=== PATIENT | female | born 1940 | race Caucasian/White ===

== ENCOUNTER 2016-12-10 04:57 | Inpatient (IN) | payer OTHER ==
[2016-11-16 13:09] VITALS: BMI 24.0
--- NOTE | 2016-11-16 14:21 | PAT Medication Instructions ---
Service Date Nov 16, 2016. Current Home Medication List Acetaminophen (Tylenol Arthritis Ext Rel), 2 TAB PO QAM Amlodipine (Norvasc), 5 MG PO BID Bioflavonoid Products (Holli-C), 1 TAB PO QAM Biotin (Biotin), 1 TAB PO QAM Calcium Carbonate-Cholecalcife (Caltrate 600+D), 1 TAB PO BID Cetirizine (Zyrtec), 10 MG PO QAM Cholecalciferol (Vitamin D3), 1 TAB PO QAM Clorazepate Dipotassium (Tranxene-T ), 3.75 MG PO TID Cyanocobalamin (Vitamin B-12), 500 MCG PO QAM Docusate Sodium (Colace), 1 CAP PO BID Esomeprazole Magnesium (Nexium), 40 MG PO BID Exemestane (Aromasin), 1 TAB PO QDL Flaxseed (Linseed) (Flaxseed Oil), 1 CAP PO QAM Folic Acid (Folic Acid), 1 TAB PO QAM Hydroxychloroquine Sulfate (Plaquenil), 200 MG PO BID Latanoprost (Xalatan 0.005% Oph Lashell), 1 DROPS OP HS Misc Natural Products (Osteo Bi-Flex Joint Shiel), 1 TAB PO BID Multiple Vitamin (Multi Vitamin), 1 TAB PO QAM Nebivolol Hcl (Bystolic), 5 MG PO BID Niacin (Niacin), 500 MG PO QAM Olopatadine Hcl (Patanol 0.1% Oph), 1 DROP OPB BID Psyllium (Metamucil), 5 CAP PO QPM Timolol Maleate (Ophth) (Timoptic-Xe 0.5% Oph), 1 DROPS OP QAM Medication Instructions For Your Scheduled Surgery Hydroxychloroquine Sulfate (Plaquenil), 200 MG PO BID (check with coil tier for instructions) - Hold the following medications 10 days prior to surgery: Misc Natural Products (Osteo Bi-Flex Joint Shiel), 1 TAB PO BID Flaxseed (Linseed) (Flaxseed Oil), 1 CAP PO QAM Biotin (Biotin), 1 TAB PO QAM - Hold the following medications evening prior to and morning of the surgery: Niacin (Niacin), 500 MG PO QAM - Hold the following medications the morning of surgery: Multiple Vitamin (Multi Vitamin), 1 TAB PO QAM Folic Acid (Folic Acid), 1 TAB PO QAM Docusate Sodium (Colace), 1 CAP PO BID Cyanocobalamin (Vitamin B-12), 500 MCG PO QAM Calcium Carbonate-Cholecalcife (Caltrate 600+D), 1 TAB PO BID Cetirizine (Zyrtec), 10 MG PO QAM Cholecalciferol (Vitamin D3), 1 TAB PO QAM Bioflavonoid Products (Holli-C), 1 TAB PO QAM Exemestane (Aromasin), 1 TAB PO QDL (can take after surgery) - Take the following medications the morning of surgery with a sip of water: Timolol Maleate (Ophth) (Timoptic-Xe 0.5% Oph), 1 DROPS OP QAM Olopatadine Hcl (Patanol 0.1% Oph), 1 DROP OPB BID Nebivolol Hcl (Bystolic), 5 MG PO BID Esomeprazole Magnesium (Nexium), 40 MG PO BID Acetaminophen (Tylenol Arthritis Ext Rel), 2 TAB PO QAM Amlodipine (Norvasc), 5 MG PO BID Clorazepate Dipotassium (Tranxene-T ), 3.75 MG PO TID - Take the following medications as scheduled the night before surgery: Psyllium (Metamucil), 5 CAP PO QPM Olopatadine Hcl (Patanol 0.1% Oph), 1 DROP OPB BID Nebivolol Hcl (Bystolic), 5 MG PO BID Latanoprost (Xalatan 0.005% Oph Lashell), 1 DROPS OP HS Esomeprazole Magnesium (Nexium), 40 MG PO BID Docusate Sodium (Colace), 1 CAP PO BID Calcium Carbonate-Cholecalcife (Caltrate 600+D), 1 TAB PO BID Amlodipine (Norvasc), 5 MG PO BID Clorazepate Dipotassium (Tranxene-T ), 3.75 MG PO TID If you have any questions please call us at [phone] or [phone] ( Elisa) or [phone]
--- NOTE | 2016-11-16 15:03 | DIAGNOSTIC IMAGING REPORT ---
CERVICAL SPINE 3 VIEWS HISTORY: Subluxation lateral neutral, flex, extension COMPARISON: None. FINDINGS: The cervical spine is visualized from C1 through the superior endplate of T1. There is no fracture. No evidence for positional subluxation. Moderate degenerative disc changes throughout. Prevertebral soft tissues and the atlantodens interval are intact. Bony mineralization is somewhat diminished. IMPRESSION: No fracture or subluxation within the cervical spine. Moderate degenerative disc change. Mild osteopenia. Electronically signed by: Aman Etienne M.D. 11/16/2016 3:01 PM Dictated Date/Time: 11/16/2016 3:00 PM
--- NOTE | 2016-11-16 15:04 | DIAGNOSTIC IMAGING REPORT ---
CHEST PREADMISSION(PA/LAT) CLINICAL HISTORY: Preoperative chest COMPARISON STUDY: No previous studies for comparison. FINDINGS: There is a moderately severe thoracolumbar scoliosis. The heart is normal in size. There is no failure. There is no focal pulmonary consolidation. There are no pleural effusions. There is a retrocardiac opacity, likely representing a hiatal hernia. There is a low suspicion 1 cm left midlung zone opacity. No corresponding abnormalities visualized in the lateral view. This could represent a summation. IMPRESSION: 1. Nonspecific 1 cm left midlung zone opacity. Short-term imaging follow-up is suggested. 2. Severe scoliosis 3. Hiatal hernia Electronically signed by: Mikie Tafoya M.D. 11/16/2016 3:02 PM Dictated Date/Time: 11/16/2016 2:59 PM
[2016-11-16 15:33] LABS: BASO % 0.3 %; BASO ABS # 0.03 K/uL (0-0.2); COMPLETE YES; EOS % 0.7 %; HEMATOCRIT 41.5 % (37-47); IG% 0.1 %; LYMPH % 32.2 %; LYMPH ABS # 2.82 K/uL (1.2-3.4); MEAN CELL VOLUME 98.6 fL (80-100); MEAN CORPUSCULAR HEMOGLOBIN 32.8 pg (25-34); MEAN CORPUSCULAR HGB CONC 33.3 g/dl (32-36); MEAN PLATELET VOLUME 10.2 fL (7.4-10.4); MONO % 7.1 %; NEUT % 59.6 %; PLATELET COUNT 213 K/uL (130-400); RED BLOOD COUNT 4.21 M/uL (4.2-5.4); WHITE BLOOD COUNT 8.77 K/uL (4.8-10.8)
[2016-11-16 15:40] LABS: URINE APPEARANCE CLEAR (CLEAR); URINE BILIRUBIN NEG (NEG); URINE COLOR YELLOW; URINE NITRITE NEG (NEG); URINE PH 6.5 (4.5-7.5); URINE SPECIFIC GRAVITY 1.025 (1.000-1.030); UROBILINOGEN NEG (NEG); ZZUR CULT IF INDIC CLEAN CATCH NO
[2016-11-16 15:45] LABS: MANUAL MICROSCOPIC REQUIRED? NO; REVIEW REQ? NO
[2016-11-16 15:50] LABS: PROTHROMBIN TIME (PATIENT) 10.6 SECONDS (9.0-12.0)
[2016-11-16 16:19] LABS: ESTIMATED AVERAGE GLUCOSE 120 mg/dl; HA1C FLAG Normal (Normal)
[2016-11-16 16:49] LABS: BUN/CREATININE RATIO 30.2 (10-20); CALCIUM 9.3 mg/dl (8.5-10.1); CREATININE 0.85 mg/dl (0.60-1.20); POTASSIUM 4.2 mmol/L (3.5-5.1)
--- NOTE | 2016-12-05 21:42 | HISTORY & PHYSICAL EXAMINATION ---
DATE OF ADMISSION: 12/10/2016 SUBJECTIVE: CHIEF COMPLAINT: Left knee pain. HISTORY OF PRESENT ILLNESS: The patient is a 76-year-old female, who is here for left knee pain. She states that the symptoms have been chronic and nontraumatic. She describes the pain as aching, sharp and throbbing. She has been treated with cortisone injections, viscosupplementation, anti-inflammatories and physical therapy with no relief. She would like to proceed with a left total knee arthroplasty. PAST MEDICAL HISTORY: Significant for hypertension, osteoarthritis, GERD, hiatal hernia and a history of breast cancer. PAST SURGICAL HISTORY: Hysterectomy, left breast lumpectomy, T and A and appendectomy. SOCIAL HISTORY: She denies alcohol use. She denies smoking or tobacco use. She denies IV drug use. She lives in a 2-nan house and she is currently retired. FAMILY HISTORY: Father had heart disease. ALLERGIES: TO DEMEROL, RECLAST, LATEX, PYRIDIUM, ZITHROMAX, ADHESIVES, ASPIRIN, DARVOCET, EPINEPHRINE DOXYCYCLINE, HYDROCHLOROTHIAZIDE, IODINE, PENICILLIN, STATINS AND SULFA. MEDICATIONS Osteo Bi-Flex, Nasonex, flaxseed oil, Plaquenil 200mg, biotin, fish oil, Aromasin 25 mg, Norvasc 5 mg, Nexium 40 mg, folic acid, vitamin B12, Zyrtec 10 mg, niacin 500 mg and cranberry multivitamin. REVIEW OF SYSTEMS: She denies headaches, fevers, chills, double vision, blurry vision, sore throat, cough, chest pain, nausea, vomiting, diarrhea, constipation, numbness, tingling, tiredness, urinary problems, thoughts to harm herself or harm others or depression. She is positive for joint pain and stiffness in the left knee. OBJECTIVE: GENERAL APPEARANCE: The patient is a 76-year-old female, sitting in no acute distress. She is awake, alert and oriented x3. VITAL SIGNS: She is 4 feet 11 and 3/4 inch she weighs 125 pounds and blood pressure of 140/70. HEENT: Normocephalic and atraumatic. Extraocular movements are intact. PERRLA. Mucosa was moist. No septal deviation. NECK: Supple, no lymphadenopathy, no JVD, no thyromegaly. HEART: Regular rate and rhythm. No murmurs or gallops. LUNGS: Clear to auscultation. No wheezing or rhonchi. ABDOMEN: Soft, nontender and nondistended. Normal bowel sounds, no hepatosplenomegaly. EXTREMITIES: Paying particular attention to the left lower extremity; she is actively able to extend her knee to 0 degrees and flex her knee to 120 degrees. Her ligaments are stable Negative Judith, negative anterior drawer and posterior drawer. Negative valgus and varus stress tests. IMAGING: X-ray shows [id number] in the lateral compartment with osteophyte formation off the femoral condyle and lateral tibial plateau and subchondral sclerotic changes as well as moderate patellofemoral osteoarthritis. IMPRESSION: Severe end-stage osteoarthritis of the left knee. PLAN: The patient is scheduled for a left total knee arthroplasty. She has failed conservative therapies including cortisone injections, viscosupplementation, anti-inflammatories and physical therapy. She would like to proceed with a left total knee arthroplasty. Risks and benefits to surgery were discussed that included but not limited to infection, DVT, pain, stiffness, need for revision surgeries, damage to blood vessels, blood loss, damage to nerves, PE and ; these were all discussed with the patient and the patient wishes to proceed. All questions were answered to her satisfaction. DVT prophylaxis was discussed which we can use aspirin 81 mg b.i.d. She would like to go to [facility] Postop appointment will be on 12/29/2016 at 2:15 p.m. PRABHJOT
[2016-12-10] VITALS (9 sets, daily range): BP systolic 99–159; BP diastolic 62–79; PULSE 0–73; TEMP 36.2–36.5; O2SAT 92–97; Ht 152.4 cm; Wt 57.5 kg
[~2016-12-10] VITALS: Ht 152.4 cm; Wt 57.5 kg
[~2016-12-10 04:57] MED LIST: ACET1TAB84 PO; AMLO-110 PO; BIOF500T PO; BIOT300T2 PO; CALC-354 PO; CETI10TA84 PO; CHOL1000 PO; CLOR3.7515 PO; CYAN500T PO; DOCU-94 PO; EXM25C PO; FLAX12003 PO; FLV1 PO; HYDR200T5 PO; LATA0.009 OP; MISCTAB30 PO; MULT-1027 PO; NEBI10TA2 PO; NIAC500T11 PO; NXM/40 PO; OLOP0.1S3 OPB; PSYL0.524 PO; TIMO0.5S2 OP
[2016-12-10] MEDS ORDERED: ROPIVACAINE 5MG/ML 30 ML 150 MG, BUPIVACAINE 0.5% MPF INJ 30 ML, KETOROLAC TROMETHAMINE... INFIL SCH ×7 (06:00)
[2016-12-10] MEDS ORDERED: ACETAMINOPHEN 500 MG TAB PO SCH (06:00)
[2016-12-10] MEDS ORDERED: LACTATED RINGER'S 1000ML IV SCH (06:00)
[2016-12-10] MEDS ORDERED: VANCOMYCIN INJ 900 MG in SODIUM CHLORIDE 0.9% 250ML 250 ML IV SCH (06:00)
[2016-12-10] MEDS ORDERED: OXYCODONE HCL 10 MG TABCR (OXYCONTIN) PO SCH (06:00)
[2016-12-10] MEDS ORDERED: LACTATED RINGER'S 1000ML 500 ML IV ONE (06:00)
[2016-12-10] MEDS ORDERED: GABAPENTIN 300 MG CAP PO SCH (06:00)
[2016-12-10] MEDS ORDERED: LACTATED RINGER'S 1000ML 1,000 ML IV SCH (06:00)
[2016-12-10] MEDS ORDERED: FAMOTIDINE 20 MG TAB PO SCH (06:00)
[2016-12-10] MEDS ORDERED: METOCLOPRAMIDE HCL 10 MG TAB PO SCH (06:00)
[2016-12-10] MEDS ORDERED: PROPOFOL IV EMULSION 10 MG/ML 20 ML VIAL IV ONE (06:12)
[2016-12-10] MEDS ORDERED: MIDAZOLAM HCL 1 MG/ML 2ML VIAL ONE (06:12)
[2016-12-10] MEDS ORDERED: LIDOCAINE HCL 2% 2 ML VIAL (20MG/ML) ONE (06:12)
[2016-12-10] MEDS ORDERED: ONDANSETRON INJ 2 MG/ML 2 ML VIAL IV PRN ×2 (06:30→09:45)
[2016-12-10] MEDS: TRANEXAMIC ACID INJ 1,000 MG in SODIUM CHLORIDE 0.9% 100ML 100 ML IV SCH ×2 (06:30→06:40)
[2016-12-10] MEDS ORDERED: HYDROmorphone INJ 2 MG/ML SYR/VIAL IV PRN (06:30)
[2016-12-10] MEDS ORDERED: ATROPINE SULFATE 0.1 MG/ML 5ML SYR IV PRN (06:30)
[2016-12-10] MEDS ORDERED: DiphenhydrAMINE HCL 50 MG/ML VIAL IV SCH (06:30)
[2016-12-10] MEDS ORDERED: BUPIVACAINE 0.5 % 5 MG/1 ML PF 10ML VIAL ONE (06:30)
[2016-12-10] MEDS ORDERED: PHENYLEPHRINE 100MCG/ML 5ML SYR IV PRN (06:30)
[2016-12-10] MEDS ORDERED: EpHEDrine SULFATE INJ 50 MG/ML AMP IV PRN (06:30)
[2016-12-10] MEDS ORDERED: ROPIVACAINE 0.5% 5 MG/ML 30 ML VIAL ONE (06:31)
--- NOTE | 2016-12-10 06:34 | History & Physical Bridge Note ---
H&P Re-Evaluation Bridge Note: I have examined the patient, reviewed the History & Physical and in the interval since the performance of the History & Physical I have noted the following changes of clinical significance: No changes noted
[2016-12-10] MEDS ORDERED: DiphenhydrAMINE HCL 50 MG/ML VIAL ONE (06:36)
[2016-12-10] MEDS ORDERED: POVIDONE-IODINE OP SOLN 30 ML BTL ONE (06:58)
[2016-12-10] MEDS ORDERED: ORTHO JOINT ANESTHETIC ONE (06:58)
[2016-12-10] MEDS ORDERED: BACITRACIN 50000 UNIT VIAL ONE (06:58)
[2016-12-10] MEDS ORDERED: EpHEDrine SULFATE 50MG/5ML SYR ONE (07:26)
--- NOTE | 2016-12-10 08:19 | [facility] Post Operative Brief Note ---
Immediate Operative Summary Operative Date December 10, 2016. Pre-Operative Diagnosis Severe end-stage osteoarthritis of the left knee Post-Operative Diagnosis Severe end-stage osteoarthritis of the left knee Procedure(s) Performed Left total knee arthroplasty Surgeon Dr. Herring Personnel Arbitrator Surgeon(s) [place] PA-C Estimated Blood Loss 20cc Findings above Specimens A. Left knee bone and tissue Drains 1 hemovac Anesthesia spinal Complication(s) None Disposition Recovery Room / PACU
--- NOTE | 2016-12-10 09:21 | Anesthesiology Progress Note ---
Anesthesia Post Op Note Date & Time December 10, 2016 at 09:21 Vital Signs Pain Intensity: 0 Vital Signs Past 12 Hours Date Time Temp Pulse Resp B/P Pulse Ox O2 Delivery O2 Flow Rate FiO2 12/10/16 09:05 60 20 117/58 97 Nasal Cannula 2 12/10/16 08:55 58 21 114/49 100 Mask 10 12/10/16 08:45 57 20 104/51 100 Mask 10 12/10/16 08:39 36.7 59 16 102/48 99 Mask 10 12/10/16 06:25 97 Room Air Notes Mental Status: alert / awake / arousable, participated in evaluation Pt Amnestic to Procedure: Yes Nausea / Vomiting: adequately controlled Pain: adequately controlled Airway Patency, RR, SpO2: stable & adequate BP & HR: stable & adequate Hydration State: stable & adequate Anesthetic Complications: no major complications apparent Uneventful recovery
--- NOTE | 2016-12-10 09:26 | DIAGNOSTIC IMAGING REPORT ---
LEFT KNEE 1 OR 2 VIEWS ROUTINE CLINICAL HISTORY: Osteoarthritis. Postop study COMPARISON: None. DISCUSSION: There are postsurgical changes of a total left knee arthroplasty and patellar resurfacing. The femoral and tibial components appear well seated. Overlying skin brianna and surgical drains are evident. There is air within the soft tissues consistent with recent surgery. IMPRESSION: Postsurgical changes of a total left knee arthroplasty. Electronically signed by: Mikie Tafoya M.D. 12/10/2016 9:25 AM Dictated Date/Time: 12/10/2016 9:25 AM
[2016-12-10] MEDS ORDERED: ALUMINUM/MAGNESIUM/SIMETH (MAALOX MAX) 30 ML UDC PO PRN (09:45)
[2016-12-10] MEDS ORDERED: DiphenhydrAMINE HCL 50 MG/ML VIAL IV PRN (09:45)
[2016-12-10] MEDS ORDERED: MoRPHine SULFATE 2 MG/ML CARP IV PRN (09:45)
[2016-12-10] MEDS ORDERED: METOCLOPRAMIDE HCL INJ 5 MG/ML 2 ML VIAL IV PRN (09:45)
[2016-12-10] MEDS ORDERED: MAGNESIUM HYDROXIDE SUSP 30 ML UDC PO PRN (09:45)
[2016-12-10] MEDS: D5W AND 1/2NSS + 20MEQ KCL 1,000 ML IV SCH ×2 (11:04→22:09)
[2016-12-10] MEDS ORDERED: NURSING VERBAL MED ORDER ONE (12:30)
--- NOTE | 2016-12-10 12:33 | Medical Consult ---
Consultation Date of Consultation: December 10, 2016. Attending Physician: Keny Herring M.D. Reason for Consultation: Post Op Medical Management History of Present Illness 76 year old female who is s/p left TKA today by Dr. Herring. Patient reports increasing left knee pain for the past few years. She failed outpatient conservative measures and therefore presented for the planned procedure today. Post operatively the patient is doing well. She reports her pain is well controlled. She denies chest pain and shortness of breath. No abdominal pain, nausea, or vomiting. She reports some mild dizziness but denies lightheadedness. She reports she has voided since surgery. Past Medical/Surgical History Medical Problems: (1) Anxiety Status: Chronic (2) Breast cancer Status: Chronic (3) GERD (gastroesophageal reflux disease) Status: Chronic (4) Hiatal hernia Status: Chronic (5) HTN (hypertension) Status: Chronic (6) Osteoarthritis Status: Chronic Surgical Problems: (1) History of appendectomy Status: Chronic (2) History of hysterectomy Status: Chronic (3) History of tonsillectomy and adenoidectomy Status: Chronic (4) Hx of tonsillectomy Status: Chronic Family History FH: ovarian cancer Aunt Social History Smoking Status: Never Smoker Alcohol Use: none Allergies Coded Allergies: Adhesives (Verified Allergy, Unknown, BLISTERS, 12/10/16) CAN'T USE PAPER TAPE WELL Aspirin (Verified Allergy, Unknown, BLEEDING, 12/10/16) Azithromycin (Verified Allergy, Unknown, RASH, 12/10/16) Beta Adrenergic Blockers (Verified Allergy, Unknown, REACTION IS TO GENERIC BETA BLOCKERS PER PT - EYE SWELLING, 12/10/16) ITCHINESS Cephalexin (Verified Allergy, Unknown, ?, 12/10/16) Ciprofloxacin (Verified Allergy, Unknown, GI UPSET, 12/10/16) Doxycycline (Verified Allergy, Unknown, YEAST INFECTION, 12/10/16) Epinephrine (Verified Allergy, Unknown, SHOCK SYMPTOMS, 12/10/16) Erythromycin (Verified Allergy, Unknown, RASH, 12/10/16) Flavocoxid (Verified Allergy, Unknown, UNKNOWN, 12/10/16) Iodinated Diagnostic Agents (Verified Allergy, Unknown, RASH, 12/10/16) Latex1 -Allergic Contact Dermititis (Verified Allergy, Unknown, ITCHY, 07/17) Meperidine (Verified Allergy, Unknown, SHOCK SYMPTOMS, 12/10/16) Methotrexate (Verified Allergy, Unknown, UNKNOWN, 12/10/16) Metoprolol (Verified Allergy, Unknown, HIVES, 12/10/16) Penicillins (Verified Allergy, Unknown, HIVES, 12/10/16) Phenazopyridine (Unverified Allergy, Unknown, per records , 12/10/16) Propoxyphene (Verified Allergy, Unknown, GI SYMPTOMS, 12/10/16) Risedronate (Verified Allergy, Unknown, UNKNOWN, 12/10/16) Simvastatin (Verified Allergy, Unknown, MUSCLE CRAMPS, 12/10/16) Sodium Hyaluronate (Verified Allergy, Unknown, ?, 12/10/16) [place] (Verified Allergy, Unknown, ITCHY/RASH, 12/10/16) Sulfa Antibiotics (Verified Allergy, Unknown, RASH, 12/10/16) Timolol (Verified Allergy, Unknown, ALLERGIC TO GENERIC FORM OF TIMOPTIC - EYE SWELLING/ITCHINES, 12/10/16) [place] (Verified Allergy, Unknown, ITCHY, 12/10/16) Zoledronic Acid (Verified Allergy, Unknown, LUMP IN THROAT/ ITCHY, 12/10/16 ) Uncoded Allergies: Euflexxa (Allergy, Unknown, SUNBURN TYPE SYMPTOMS, 11/16/16) Home Medications Tranxene-T (Clorazepate Dipotassium) 3.75 Mg Tab 3.75 Mg PO TID Xalatan 0.005% Oph Lashell (Latanoprost) 0.005 % Lashell 1 Drops OP HS 90 Days BRAND NAME NECESSARY PER PT Timoptic-Xe 0.5% Oph (Timolol Maleate (Ophth)) 0.5 % Lashell 1 Drops OP QAM BRAND NAME NECESSARY PER PT Patanol 0.1% Oph (Olopatadine Hcl) 0.1 % Lashell 1 Drop OPB BID Bystolic (Nebivolol Hcl) 10 Mg Tab 5 Mg PO BID BRAND NAME NECESSARY PER PT Biotin 300 Mcg Tab 1 Tab PO QAM Multi Vitamin (Multiple Vitamin) 1 Tab Tab 1 Tab PO QAM Nexium (Esomeprazole Magnesium) 40 Mg Capcr 40 Mg PO BID Niacin 500 Mg Tab 500 Mg PO QAM Zyrtec (Cetirizine HCl) 10 Mg Tab 10 Mg PO QAM Holli-C (Bioflavonoid Products) 1 Tab Tab 1 Tab PO QAM Caltrate 600+D (Calcium Carbonate-Cholecalcife) 1 Tab Tab 1 Tab PO BID Folic Acid 1 Mg Tab 1 Tab PO QAM Tylenol Arthritis Ext Rel (Acetaminophen) 650 Mg Cplt 2 Tab PO QAM Vitamin B-12 (Cyanocobalamin) 500 Mcg Tab 500 Mcg PO QAM Metamucil (Psyllium) 0.52 Gm Cap 5 Cap PO QPM Osteo Bi-Flex Joint Shiel (Misc Natural Products) 1 Tab Tab 1 Tab PO BID Vitamin D3 (Cholecalciferol) 1,000 Unit Tab 1 Tab PO QAM 90 Days Plaquenil (Hydroxychloroquine Sulfate) 200 Mg Tab 200 Mg PO BID Colace (Docusate Sodium) 100 Mg Cap 1 Cap PO BID 30 Days Norvasc (Amlodipine Besylate) 5 Mg Tab 5 Mg PO BID Aromasin (Exemestane) 25 Mg Tab 1 Tab PO QDL Flaxseed Oil (Flaxseed (Linseed)) 1 Cap Cap 1 Cap PO QAM Current Inpatient Medications Current Inpatient Medications Medications (Trade) Dose Ordered Sig/Bucky Route Start Time Stop Time Status Last Admin Dose Admin Lactated Ringer's 1,000 ml @ 15 mls/hr Q24H IV 12/10/16 06:00 12/11/16 05:59 Lactated Ringer's 1,000 ml @ 60 mls/hr [id number] IV 12/10/16 06:00 12/10/16 22:39 Vancomycin HCl/ Sodium Chloride (Vancomycin Inj/ Nss 250ml) 268 ml @ 125 mls/hr PREOP IV 12/10/16 06:00 12/11/16 05:59 12/10/16 06:40 125 MLS/HR Acetaminophen (Tylenol Tab) 1,000 mg PREOP PO 12/10/16 06:00 12/10/16 18:00 12/10/16 06:45 1,000 MG Famotidine (Pepcid Tab) 20 mg PREOP PO 12/10/16 06:00 12/10/16 18:00 12/10/16 06:45 20 MG Gabapentin (Neurontin Cap) 300 mg PREOP PO 12/10/16 06:00 12/10/16 18:00 12/10/16 06:45 300 MG Metoclopramide HCl (Reglan Tab) 10 mg PREOP PO 12/10/16 06:00 12/10/16 18:00 12/10/16 06:45 10 MG Oxycodone HCl (Oxycontin Tab) 10 mg PREOP PO 12/10/16 06:00 12/10/16 18:00 12/10/16 06:45 10 MG Amlodipine Besylate (Norvasc Tab) 5 mg BID PO 12/10/16 21:00 01/09/17 20:59 Cetirizine HCl (zyrTEC TAB) 10 mg QAM PO 12/11/16 09:00 01/10/17 08:59 Cholecalciferol (Vitamin D Tab) 1,000 inter.unit QAM PO 12/11/16 09:00 01/10/17 08:59 Clorazepate Dipotassium (Tranxene-T Tab) 3.75 mg TID PO 12/10/16 14:00 Cyanocobalamin (Vitamin B-12 Tab) 500 mcg QAM PO 12/11/16 09:00 01/10/17 08:59 Docusate Sodium (coLACE CAP) 100 mg BID PO 12/10/16 21:00 01/09/17 20:59 Folic Acid (Folvite Tab) 1 mg QAM PO 12/11/16 09:00 01/10/17 08:59 Latanoprost (Xalatan Oph Soln) 1 drops HS OP 12/10/16 21:00 01/09/17 20:59 Multivitamins (Multivitamin Tab) 1 tab QAM PO 12/11/16 09:00 01/10/17 08:59 Niacin (Niacin Tab) 500 mg QAM PO 12/11/16 09:00 01/10/17 08:59 Timolol Maleate (Timoptic-Xe 0.5% Oph Soln) 1 drops QAM OP 12/11/16 09:00 01/10/17 08:59 Calcium/Vitamin D (Caltrate Plus Tab) 1 tab QAM PO 12/11/16 09:00 01/10/17 08:59 Pantoprazole Sodium (Protonix Tab) 40 mg QAM PO 12/11/16 09:00 01/10/17 08:59 Miscellaneous Information (Order Awaiting Action) 1 ea QS N/A 12/10/16 16:00 01/09/17 15:59 Miscellaneous Information (Order Awaiting Action) 1 ea QS N/A 12/10/16 16:00 01/09/17 15:59 Miscellaneous Information 1 ea 1 ea QS N/A 12/10/16 16:00 01/09/17 15:59 Potassium Chloride/Dextrose/ Sod Cl 1,000 ml @ 100 mls/hr Q10H IV 12/10/16 11:00 12/11/16 10:59 12/10/16 11:04 100 MLS/HR Vancomycin HCl/ Sodium Chloride (Vancomycin Inj/ Nss 250ml) 268 ml @ 125 mls/hr 1800 ONCE IV 12/10/16 18:00 12/10/16 20:08 Oxycodone HCl (Roxicodone Immediate Rel Tab) 1 TABLET FOR PAIN RATING... Q4H PRN PO 12/10/16 09:45 12/24/16 09:44 Oxycodone HCl (Oxycontin Tab) 10 mg Q12 PO 12/10/16 21:00 12/24/16 20:59 Morphine Sulfate (MoRPHine SULFATE INJ) 2 mg Q2H PRN IV 12/10/16 09:45 12/24/16 09:44 Acetaminophen (Tylenol Tab) 1,000 mg Q8H PO 12/10/16 16:00 01/09/17 15:59 Magnesium Hydroxide (Milk Of Magnesia Susp) 30 ml Q6H PRN PO 12/10/16 09:45 01/09/17 09:44 Diphenhydramine HCl (Benadryl Cap) 25 mg Q8H PRN PO 12/10/16 09:45 01/09/17 09:44 Diphenhydramine HCl (Benadryl Inj) 25 mg Q8H PRN IV 12/10/16 09:45 01/09/17 09:44 Al Hydrox/Mg Hydrox/Simethicone (Maalox Max Susp) 15 ml Q4H PRN PO 12/10/16 09:45 01/09/17 09:44 Ondansetron HCl (Zofran Inj) 4 mg Q6H PRN IV 12/10/16 09:45 01/09/17 09:44 Metoclopramide HCl (Reglan Inj) 10 mg Q6H PRN IV 12/10/16 09:45 01/09/17 09:44 Ferrous Gluconate (Ferrous Gluconate Tab) 324 mg TIDM PO 12/10/16 12:30 01/09/17 12:29 Dexamethasone (Decadron Tab) 8 mg ONE PO 12/11/16 07:30 12/11/16 07:31 Aspirin/Aluminum/ Magnesium/Ca Carb (Ascriptin Tab) 325 mg QAM PO 12/11/16 09:00 01/10/17 08:59 Miscellaneous Information (Nursing Verbal Med Order) 1 ea ONE ONCE N/A 12/10/16 12:30 12/10/16 12:31 UNV Miscellaneous Information (Order Awaiting Action) 1 ea QS N/A 12/11/16 00:00 01/09/17 15:59 Review of Systems ROS per HPI, all other systems reviewed and negative Physical Exam Date Time Temp Pulse Resp B/P Pulse Ox O2 Delivery O2 Flow Rate FiO2 12/10/16 11:59 55 16 99/62 97 Nasal Cannula 2.0 12/10/16 10:58 63 18 110/66 96 Nasal Cannula 2.0 12/10/16 10:30 63 16 117/63 96 Nasal Cannula 2.0 12/10/16 09:45 63 17 131/51 96 Nasal Cannula 2 12/10/16 09:35 68 20 135/70 96 Nasal Cannula 2 12/10/16 09:25 36.2 63 18 141/53 97 Nasal Cannula 2 12/10/16 09:15 60 21 109/58 97 Nasal Cannula 2 12/10/16 09:05 60 20 117/58 97 Nasal Cannula 2 12/10/16 08:55 58 21 114/49 100 Mask 10 12/10/16 08:45 57 20 104/51 100 Mask 10 12/10/16 08:39 36.7 59 16 102/48 99 Mask 10 12/10/16 06:25 97 Room Air General Appearance: no apparent distress Head: normocephalic Eyes: normal inspection ENT: hearing grossly normal Neck: supple, no JVD Respiratory/Chest: lungs clear, normal breath sounds, no respiratory distress Cardiovascular: regular rate, rhythm, no edema, normal peripheral pulses Abdomen/GI: normal bowel sounds, non tender, soft Extremities/Musculoskelatal: + pertinent finding (s/p left knee surgery, surgical dressing intact, drain in place draining bloody drainage, CSM checks intact to LLE) Neurologic/Psych: no motor/sensory deficits, alert, normal mood/affect, oriented x 3 Skin: normal color, warm/dry Assessment & Plan S/P LEFT TKA - POD#0 - activity and wound care orders as per ortho - pain control with bowel regimen - PT/OT - monitor H/H for acute blood loss anemia and transfuse blood products PRN HTN - BP controlled, continue amlodipine and nebivolol OSTEOARTHRITIS - on Plaquenil ANXIETY - continue Tranxene HX BREAST CANCER - continue Aromasin DVT PROPHYLAXIS - deferred to ortho Thank you for this consultation. We will follow the patient with you during their hospital stay. You can reach a [facility] via pager @ . Attending Addendum: The patient was seen and examined S/P Left TKA Denies any other complaints O/E Hemodynamically stable Chest-clear to auscultate bilaterally Heart-regular Abdomen-benign,no masses,bowel sound present Extremities-trace edema on left Labs and Imaging studies were reviewed Agree with the assessment and plan. Dr Jamshid Bundy
[2016-12-10] MEDS: FERROUS GLUCONATE 324 MG TAB PO SCH ×2 (13:26→18:55)
[2016-12-10] MEDS ORDERED: CLORAZEPATE DIPOTASSIUM 3.75 MG TAB PO SCH (14:00)
--- NOTE | 2016-12-10 17:49 | OPERATIVE REPORT ---
DATE OF OPERATION: 12/10/2016 PREOPERATIVE DIAGNOSIS: Left knee degenerative joint disease. POSTOPERATIVE DIAGNOSIS: Same. PROCEDURE: Left total knee arthroplasty. SURGEON: Keny Herring MD INSPECTOR HOT FORGINGS: [place] PA-C who was necessary for assistance of procedure with positioning, prepping, draping, retraction and closure. ANESTHESIA: Spinal with adductor canal block. SPECIMEN: Bone and tissue. ESTIMATED BLOOD LOSS: 20 mL. IMPLANTS: [employer] Journey version 2, femur 4, tibia 3, poly 11, patella 29 oval. COMPLICATIONS: None. INDICATIONS: The patient is a 76-year-old female with longstanding degenerative joint disease of the left knee. She has failed conservative measures including injection, anti-inflammatories and rehab. Failing conservative measures, she wished to proceed with left total knee arthroplasty. Risks, benefits, and alternatives of surgery including but not limited to infection, DVT, pain, stiffness, need for urgent surgery, failure to relieve all symptoms, damage to blood vessels, damage to nerves, risks of anesthesia were discussed with the patient and she wished to proceed. DESCRIPTION OF PROCEDURE: The patient was identified, laterality was confirmed and marked. She received a preoperative antibiotic as well as an adductor canal block and a spinal anesthetic. A well-padded tourniquet was placed on the thigh and limb was prepped and draped in usual sterile manner with ChloraPrep. The limb was exsanguinated and tourniquet was inflated. A longitudinal incision anterior aspect of the knee, sharply incised the skin utilizing Bovie electrocautery to achieve hemostasis. We made a medial parapatellar arthrotomy, mobilized the patella laterally, and excised the anterior horns of medial and lateral meniscus. I elevated the deep MCL. I then pinned into place the patient matched distal femoral cutting guide, made my distal femoral resection and then pinned into place a size 4 femoral cutting block and made my anterior, posterior and chamfer cuts. I then removed the remaining portions of the cruciates as well as the menisci. I then pinned and placed the patient matched tibial cutting guide, made my tibial resection, sized in position a size 3 tibia, pinned this into place and then cut for the post. I then removed osteophytes off the posterior aspect of the femur and then placed the trial femur into place and then cut for the trochlear component. We then sequentially trialed up to a size 11 poly. We had good range of motion, good stability and good soft tissue balancing with 11 poly. The patella was prepared with a freehand cut, sized and drilled for a 29 oval patella. She had slight lateral tracking of the patella and small lateral release was needed. We were able to preserve the capsular tissue. The trial components were removed. Wound was thoroughly irrigated. Deep tissues were anesthetized with an ortho mix solution and then with Simplex HV with gent cement, cemented my definitive components. This was [employer] Journey version 2, femur 4, tibia 3, poly 11 and patella 29 oval. Betadine soak was performed. Deep drain was placed. The arthrotomy was closed with interrupted #1 Vicryl sutures, subcutaneous tissue with interrupted 2-0 Vicryl suture and skin with brianna. Sterile dressing was applied. All needle and sponge counts were correct at the end of the procedure. The patient was transferred to the PACU in stable condition without apparent complication. I attest to the content of the Intraoperative Record and any orders documented therein. Any exceptio ns are noted below.
[2016-12-10] MEDS ORDERED: VANCOMYCIN INJ 900 MG in SODIUM CHLORIDE 0.9% 250ML 250 ML IV ONE (18:00)
[2016-12-10] MEDS: ACETAMINOPHEN 500 MG TAB PO SCH ×2 (18:56→23:23)
[2016-12-10] MEDS ORDERED: LATANOPROST 0.005% OP SOLN 2.5 ML BTL OPB SCH (21:00)
[2016-12-10] MEDS ORDERED: HYDROXYCHLOROQUINE SULFATE 200 MG TAB PO SCH (21:00)
[2016-12-10] MEDS ORDERED: DOCUSATE SODIUM 100 MG CAP PO SCH (21:00)
[2016-12-10] MEDS ORDERED: LATANOPROST 0.005% OP SOLN 2.5 ML BTL OP SCH (21:00)
[2016-12-10] MEDS ORDERED: PSYLLIUM PO SCH (21:00)
[2016-12-10] MEDS: AMLODIPINE BESYLATE 5 MG TAB PO SCH (22:09)
[2016-12-10] MEDS: DOCUSATE SODIUM 100 MG CAP PO SCH (22:09)
[2016-12-10] MEDS: OLOPATADINE HYDROCHLORIDE 5 ML BTL OPB SCH (22:10)
[2016-12-10] MEDS: OXYCODONE HCL 10 MG TABCR (OXYCONTIN) PO SCH (22:10)
[2016-12-11] VITALS (7 sets, daily range): BP systolic 111–133; BP diastolic 62–74; PULSE 75–86; TEMP 36.2–36.8; O2SAT 92–95
[2016-12-11] MEDS: D5W AND 1/2NSS + 20MEQ KCL 1,000 ML IV SCH (05:45)
[2016-12-11 06:35] LABS: HEMATOCRIT 29.6 % (37-47); MEAN CELL VOLUME 98.7 fL (80-100); MEAN CORPUSCULAR HEMOGLOBIN 33.7 pg (25-34); MEAN CORPUSCULAR HGB CONC 34.1 g/dl (32-36); MEAN PLATELET VOLUME 9.8 fL (7.4-10.4); PLATELET COUNT 150 K/uL (130-400); WHITE BLOOD COUNT 12.71 K/uL (4.8-10.8)
[2016-12-11 06:58] LABS: BUN/CREATININE RATIO 21.6 (10-20); CALCIUM 7.9 mg/dl (8.5-10.1); CREATININE 0.54 mg/dl (0.60-1.20)
[2016-12-11] MEDS ORDERED: DEXAMETHASONE 4 MG TAB PO SCH (07:30)
[2016-12-11] MEDS: ACETAMINOPHEN 500 MG TAB PO SCH ×3 (07:57→23:24)
[2016-12-11] MEDS: OLOPATADINE HYDROCHLORIDE 5 ML BTL OPB SCH ×2 (07:59→20:51)
[2016-12-11] MEDS: TIMOLOL MALEATE 0.25% OP SOLN 5 ML BTL OP SCH (07:59)
[2016-12-11] MEDS: FERROUS GLUCONATE 324 MG TAB PO SCH ×3 (07:59→17:49)
[2016-12-11] MEDS: CHOLECALCIFEROL 1000 INTER.UNIT TAB PO SCH (08:47)
[2016-12-11] MEDS: AMLODIPINE BESYLATE 5 MG TAB PO SCH ×2 (08:47→20:59)
[2016-12-11] MEDS: NIACIN 500 MG TAB IMMEDIATE RELEASE PO SCH (08:47)
[2016-12-11] MEDS: CYANOCOBALAMIN 500 MCG TAB (VIT B-12) PO SCH (08:47)
[2016-12-11] MEDS: MULTIVITAMIN TAB PO SCH (08:47)
[2016-12-11] MEDS: CALCIUM 600MG + VIT D 400 IU TAB PO SCH (08:47)
[2016-12-11] MEDS: CETIRIZINE HCL 10 MG TAB PO SCH (08:47)
[2016-12-11] MEDS: DOCUSATE SODIUM 100 MG CAP PO SCH ×2 (08:47→20:52)
[2016-12-11] MEDS: PANTOprazole SOD 40 MG TAB PO SCH (08:48)
[2016-12-11] MEDS: OXYCODONE HCL 10 MG TABCR (OXYCONTIN) PO SCH ×2 (08:51→20:58)
[2016-12-11] MEDS ORDERED: BIOFLAVONOID PRODUCTS PO SCH (09:00)
[2016-12-11] MEDS ORDERED: NON-FORMULARY MEDICATION (Biotin 1 TAB) PO SCH (09:00)
[2016-12-11] MEDS ORDERED: MULTIVITAMIN TAB PO SCH (09:00)
[2016-12-11] MEDS ORDERED: ASPIRIN/ALUM/MAGNES/CAL CARB 325 MG TAB PO SCH (09:00)
[2016-12-11] MEDS ORDERED: TIMOLOL GFS 0.5% OPH SOLN 74 DROPS/5 ML BTL OP SCH (09:00)
[2016-12-11] MEDS ORDERED: NURSING VERBAL MED ORDER ONE (09:30)
[2016-12-11] MEDS: ASPIRIN 81 MG ECTAB PO SCH ×2 (10:18→20:52)
--- NOTE | 2016-12-11 10:43 | Orthopedic Progress Note ---
Orthopedic Progress Note Date of Service December 11, 2016. Subjective Post OP Day: 1 Reports: feeling well, pain controlled w PO medications, Denies: SOB, calf pain , chest pain, complaints, light headedness, nausea / vomiting Objective calves soft nontender, N/V intact, capillary refill less than 2 sec., dressing C /D/I Date Time Temp Pulse Resp B/P Pulse Ox O2 Delivery O2 Flow Rate FiO2 12/11/16 09:19 82 95 12/11/16 07:19 36.7 85 16 131/72 92 Room Air 12/11/16 03:56 36.8 76 16 127/74 92 Room Air 12/11/16 01:05 Room Air 12/10/16 23:00 36.5 73 16 137/79 92 Room Air 12/10/16 19:35 36.3 67 16 159/77 96 Room Air 12/10/16 17:00 Room Air 12/10/16 15:32 36.2 57 14 130/70 95 Room Air 0 12/10/16 13:01 61 18 125/69 97 Nasal Cannula 2.0 12/10/16 12:50 97 Nasal Cannula 2.0 12/10/16 11:59 55 16 99/62 97 Nasal Cannula 2.0 12/10/16 10:58 63 18 110/66 96 Nasal Cannula 2.0 Laboratory Results 24 Hours: Test 12/11/16 06:09 Hematocrit 29.6 % Hemoglobin 10.1 g/dL Assessment & Plan Assessment: POD 1 s/p L TKA Plan: Doing well ASA 81 mg for DVT proph pain controlled Patient wishes [facility] Inhouse Planning Pain Management: Oxycontin, Oxy IR DVT Prophylaxis: TEDs, SCDs, ASA Discharge Planning Discharge Planning: rehab hospital DVT Prophylaxis: ASA Therapy: Physical Therapy
[2016-12-11] MEDS: CLORAZEPATE DIPOTASSIUM 3.75 MG PO SCH ×2 (14:00→20:53)
--- NOTE | 2016-12-11 18:39 | Progress Note ---
Medicine Progress Note Date & Time of Visit: December 11, 2016 at 18:29. Subjective Pt was seen and examined Lying in bed with no distress Pt said said that she feels good She had physical therapy done today denies any chest pain, palpitation, dizziness and sob Objective Last 8 Hrs Date Time Temp Pulse Resp B/P Pulse Ox O2 Delivery O2 Flow Rate FiO2 12/11/16 15:20 Room Air 12/11/16 15:13 36.7 86 16 120/69 92 Room Air 12/11/16 11:32 36.7 75 16 119/69 94 Room Air Physical Exam: General- No acute distress Head- atraumatic Eyes- PERRL, EOMI ENT- oropharynx clear Neck- supple, no JVD Lungs- No wheezing Heart- regular rhythm; no murmur Abdomen- normal bowel sounds, soft Extremities- no calf tenderness Neuro- alert, oriented x 3; PERRL, EOMI Skin- warm & dry Laboratory Results: Last 24 Hours Test 12/11/16 06:09 White Blood Count 12.71 K/uL Red Blood Count 3.00 M/uL Hemoglobin 10.1 g/dL Hematocrit 29.6 % Mean Corpuscular Volume 98.7 fL Mean Corpuscular Hemoglobin 33.7 pg Mean Corpuscular Hemoglobin Concent 34.1 g/dl RDW Standard Deviation 46.3 fL RDW Coefficient of Variation 12.8 % Platelet Count 150 K/uL Mean Platelet Volume 9.8 fL Sodium Level 141 mmol/L Potassium Level 4.0 mmol/L Chloride Level 108 mmol/L Carbon Dioxide Level 29 mmol/L Anion Gap 4.0 mmol/L Blood Urea Nitrogen 12 mg/dl Creatinine 0.54 mg/dl Est Creatinine Clear Calc Drug Dose 69.3 ml/min Estimated GFR () 105.5 Estimated GFR (Non- 91.0 BUN/Creatinine Ratio 21.6 Random Glucose 124 mg/dl Calcium Level 7.9 mg/dl Assessment & Plan S/P LEFT TKA - POD#[address] Herring - incentive spirometry - pain control with bowel regimen - PT/OT - monitor H/H HTN continue amlodipine and nebivolol Stable OSTEOARTHRITIS - on Plaquenil ANXIETY - continue Tranxene HX BREAST CANCER - continue Aromasin DVT PROPHYLAXIS - As per ortho CODE STATUS FULL CODE Current Inpatient Medications: Current Inpatient Medications Medications (Trade) Dose Ordered Sig/Bucky Route Start Time Stop Time Status Last Admin Dose Admin Amlodipine Besylate (Norvasc Tab) 5 mg BID PO 12/10/16 21:00 01/09/17 20:59 12/11/16 08:47 5 MG Cetirizine HCl (zyrTEC TAB) 10 mg QAM PO 12/11/16 09:00 01/10/17 08:59 12/11/16 08:47 10 MG Cholecalciferol (Vitamin D Tab) 1,000 inter.unit QAM PO 12/11/16 09:00 01/10/17 08:59 12/11/16 08:47 1,000 INTER.UNIT Cyanocobalamin (Vitamin B-12 Tab) 500 mcg QAM PO 12/11/16 09:00 01/10/17 08:59 12/11/16 08:47 500 MCG Docusate Sodium (coLACE CAP) 100 mg BID PO 12/10/16 21:00 01/09/17 20:59 12/11/16 08:47 100 MG Folic Acid (Folvite Tab) 1 mg QAM PO 12/11/16 09:00 01/10/17 08:59 12/11/16 08:47 1 MG Multivitamins (Multivitamin Tab) 1 tab QAM PO 12/11/16 09:00 01/10/17 08:59 12/11/16 08:47 1 TAB Niacin (Niacin Tab) 500 mg QAM PO 12/11/16 09:00 01/10/17 08:59 12/11/16 08:47 500 MG Calcium/Vitamin D (Caltrate Plus Tab) 1 tab QAM PO 12/11/16 09:00 01/10/17 08:59 12/11/16 08:47 1 TAB Pantoprazole Sodium (Protonix Tab) 40 mg QAM PO 12/11/16 09:00 01/10/17 08:59 Oxycodone HCl (Roxicodone Immediate Rel Tab) 1 TABLET FOR PAIN RATING... Q4H PRN PO 12/10/16 09:45 12/24/16 09:44 Oxycodone HCl (Oxycontin Tab) 10 mg Q12 PO 12/10/16 21:00 12/24/16 20:59 12/11/16 08:51 10 MG Morphine Sulfate (MoRPHine SULFATE INJ) 2 mg Q2H PRN IV 12/10/16 09:45 12/24/16 09:44 Acetaminophen (Tylenol Tab) 1,000 mg Q8H PO 12/10/16 16:00 01/09/17 15:59 12/11/16 16:27 1,000 MG Magnesium Hydroxide (Milk Of Magnesia Susp) 30 ml Q6H PRN PO 12/10/16 09:45 01/09/17 09:44 Diphenhydramine HCl (Benadryl Cap) 25 mg Q8H PRN PO 12/10/16 09:45 01/09/17 09:44 Diphenhydramine HCl (Benadryl Inj) 25 mg Q8H PRN IV 12/10/16 09:45 01/09/17 09:44 Al Hydrox/Mg Hydrox/Simethicone (Maalox Max Susp) 15 ml Q4H PRN PO 12/10/16 09:45 01/09/17 09:44 Ondansetron HCl (Zofran Inj) 4 mg Q6H PRN IV 12/10/16 09:45 01/09/17 09:44 Metoclopramide HCl (Reglan Inj) 10 mg Q6H PRN IV 12/10/16 09:45 01/09/17 09:44 Ferrous Gluconate (Ferrous Gluconate Tab) 324 mg TIDM PO 12/10/16 12:30 01/09/17 12:29 12/11/16 17:49 324 MG Olopatadine HCl (Patanol 0.1% Op Soln) 1 drops BID OPB 12/10/16 21:00 01/09/17 20:59 12/11/16 07:59 1 DROPS Miscellaneous Information (Order Awaiting Action) 1 ea QS N/A 12/11/16 00:00 01/09/17 15:59 Timolol Maleate (Timoptic 0.25% Oph Soln) 1 drops QAM OP 12/11/16 09:00 01/10/17 08:59 12/11/16 07:59 1 DROPS Aspirin (Ecotrin Tab) 81 mg BID PO 12/11/16 10:00 01/10/17 09:59 12/11/16 10:18 81 MG Latanoprost (Xalatan Oph Soln) 1 drops HS OPB 12/11/16 21:00 01/09/17 20:59 Exemestane (Exemestane) 25 mg DAILY PO 12/12/16 09:00 01/11/17 08:59 Nebivolol (Bystolic Tab) 5 mg BID PO 12/11/16 21:00 01/10/17 20:59 Clorazepate Dipotassium (Tranxene-T Tab) 3.75 mg TID PO 12/11/16 14:00 01/10/17 13:59 12/11/16 14:00 3.75 MG
[2016-12-11] MEDS: OXYCODONE HCL IR 5 MG TAB (IMMEDIATE RELEASE) PO PRN ×2 (19:32→23:28)
[2016-12-11] MEDS: LATANOPROST 0.005% OP SOLN 2.5 ML BTL OPB SCH (20:51)
[2016-12-11] MEDS: NEBIVOLOL HCL 5 MG PO SCH (20:52)
[2016-12-12] VITALS (8 sets, daily range): BP systolic 98–146; BP diastolic 58–73; PULSE 68–89; TEMP 36.4–36.8; O2SAT 90–96
[2016-12-12 06:02] LABS: HEMATOCRIT 26.1 % (37-47); MEAN CELL VOLUME 99.6 fL (80-100); MEAN CORPUSCULAR HEMOGLOBIN 33.6 pg (25-34); MEAN CORPUSCULAR HGB CONC 33.7 g/dl (32-36); PLATELET COUNT 145 K/uL (130-400); RED BLOOD COUNT 2.62 M/uL (4.2-5.4)
--- NOTE | 2016-12-12 07:11 | Orthopedic Progress Note ---
Orthopedic Progress Note Date of Service December 12, 2016. Subjective Post OP Day: 2 Reports: feeling well, pain controlled w PO medications, Denies: SOB, calf pain , chest pain, complaints, light headedness, nausea / vomiting Objective calves soft nontender, N/V intact, capillary refill less than 2 sec., incision C /D/I, A&O x3, toes mobile Date Time Temp Pulse Resp B/P Pulse Ox O2 Delivery O2 Flow Rate FiO2 12/12/16 00:28 Room Air 12/11/16 23:00 36.2 75 16 111/62 93 Room Air 12/11/16 20:50 83 130/72 12/11/16 15:20 Room Air 12/11/16 15:13 36.7 86 16 120/69 92 Room Air 12/11/16 11:32 36.7 75 16 119/69 94 Room Air 12/11/16 09:19 82 95 12/11/16 07:55 Room Air 12/11/16 07:19 36.7 85 16 131/72 92 Room Air Laboratory Results 24 Hours: Test 12/12/16 05:15 Hematocrit 26.1 % Hemoglobin 8.8 g/dL Assessment & Plan Assessment: POD 2 s/p L TKA H/H 8.8/26- currently asymptomatic, will cont to monitor Plan: Doing well ASA 81 mg for DVT proph pain controlled Patient wishes [facility], will discuss with CM Discharge Planning Discharge Planning: rehab hospital DVT Prophylaxis: ASA Therapy: Physical Therapy
[2016-12-12] MEDS: OXYCODONE HCL 10 MG TABCR (OXYCONTIN) PO SCH ×2 (08:31→20:42)
[2016-12-12] MEDS: FERROUS GLUCONATE 324 MG TAB PO SCH ×3 (08:32→18:29)
[2016-12-12] MEDS: ACETAMINOPHEN 500 MG TAB PO SCH ×3 (08:32→22:54)
[2016-12-12] MEDS: OLOPATADINE HYDROCHLORIDE 5 ML BTL OPB SCH ×2 (08:33→20:40)
[2016-12-12] MEDS: TIMOLOL MALEATE 0.25% OP SOLN 5 ML BTL OP SCH (08:33)
[2016-12-12] MEDS: NEBIVOLOL HCL 5 MG PO SCH ×2 (08:34→20:43)
[2016-12-12] MEDS: CALCIUM 600MG + VIT D 400 IU TAB PO SCH (08:34)
[2016-12-12] MEDS: DOCUSATE SODIUM 100 MG CAP PO SCH ×2 (08:34→20:41)
[2016-12-12] MEDS: ASPIRIN 81 MG ECTAB PO SCH ×2 (08:34→20:41)
[2016-12-12] MEDS: EXEMESTANE 25 MG PO SCH (08:35)
[2016-12-12] MEDS: MULTIVITAMIN TAB PO SCH (08:36)
[2016-12-12] MEDS: NIACIN 500 MG TAB IMMEDIATE RELEASE PO SCH (08:37)
[2016-12-12] MEDS: AMLODIPINE BESYLATE 5 MG TAB PO SCH ×2 (08:37→20:42)
[2016-12-12] MEDS: PANTOprazole SOD 40 MG TAB PO SCH (08:39)
[2016-12-12] MEDS: CLORAZEPATE DIPOTASSIUM 3.75 MG PO SCH ×3 (08:40→20:43)
[2016-12-12] MEDS: CHOLECALCIFEROL 1000 INTER.UNIT TAB PO SCH (08:40)
[2016-12-12] MEDS: CETIRIZINE HCL 10 MG TAB PO SCH (08:40)
[2016-12-12] MEDS: CYANOCOBALAMIN 500 MCG TAB (VIT B-12) PO SCH (08:40)
--- NOTE | 2016-12-12 10:07 | Discharge Instructions ---
Discharge Instructions Date of Service December 12, 2016. Admission Reason for Admission: Left Knee Osteoarthritis Discharge Discharge Diagnosis / Problem: left Total Knee replacement Discharge Goals Goal(s): Decrease discomfort, Improve function, Increase independence Activity Recommendations Activity Level: Up Ad Cher Therapies: Physical Therapy, Weight Bearing Status (WBAT left leg) Weightbearing Status: Left weightbearing (as tolerated) . Additional Information Patient informed of condition: Yes Advance Directives: No DNR: No Level of Care: Acute Rehab Communicable Disease: No Prognosis: Stable [place] Catheter: No Instructions / Follow-Up Instructions / Follow-Up ACTIVITY RECOMMENDATIONS: SELF CARE INSTRUCTIONS AFTER TOTAL KNEE REPLACEMENT A. You may need to continue a physical therapy program after discharge from the hospital. There are several options available to you. Your doctor will assist you in selecting the best one for you. 1. An out-patient facility 2 to 3 times a week for therapy or home therapy. 2. Continue working on all exercises taught to you in the hospital. Your goals should be to increase bending of your knee to 90 degrees and beyond and to fully straighten your knee. B. You may progress at your own pace from walking with a walker or crutches to a cane; then to no assistive devices. C. Make walking a part of your daily routine. Be up as much as comfortable with rest periods throughout the day. Rest with leg elevation is very important. Use the ice wrap frequently for the first 3-4 weeks. D. There are no restrictions on activities. You may ride in a car, shop, participate in sanitation engineer and all social activities. E. Wear the long elastic stockings (ALIVIA hose) 20 hours a day for 2 weeks after surgery. They can be removed several times a day for laundering and for a bath. F. You may shower, no tub baths until cleared by your doctor. SPECIAL CARE INSTRUCTIONS: VERY IMPORTANT TO READ AND REVIEW A. There are a few signs you need to watch for after you are home. Call [facility] if you notice any of the followin. Increased severe knee pain. Some pain is expected especially when you exercise. 2. Increased swelling in your leg or knee; pain or swelling of the calf muscle in either lower leg. 3. Any fluid drainage from the incision. 4. Shortness of breath or chest pain. B. Please call [facility] at if you have any concerns or questions about your operation or recovery. The doctor or his nurse will return your call promptly. C. You must take antibiotics before dental work, bladder, bowel or other surgery. Your doctor will provide you with a permanent care to carry describing this precaution. IMPORTANT: * REMEMBER TO TAKE ASPIRIN, 81 MG, TWICE DAILY FOR 4 WEEKS UNLESS OTHERWISE DIRECTED. THIS IS YOUR BLOOD THINNER. * HIGH RISK PATIENTS MAY BE PRESCRIBED A STRONGER BLOOD THINNER. THIS WILL BE PROVIDED AT DISCHARGE. * CALL IF INCREASED PAIN, REDNESS, DRAINAGE OR FEVER GREATER THAT 101. * WEAR ALIVIA HOSE 20 HOURS PER DAY FOR 2 WEEKS. * YOU MAY HAVE A LARGE BAND-AID LIKE DRESSING (SILVERON). THIS WILL REMAIN ON YOUR INCISION FOR 7 DAYS, THEN CAN BE REMOVED. IF INCISION IS LEAKING THROUGH DRESSING, CALL THE OFFICE . FOLLOW UP VISIT: If appointment is not already scheduled: Please call [facility] to make a follow-up appointment for 2 weeks after your surgery at . Current Hospital Diet Patient's current hospital diet: Regular Diet Discharge Diet Recommended Diet: Regular Diet Procedures Procedures Performed: Left total knee arthroplasty Pending Studies Studies pending at discharge: no Physician Orders On Transfer Dressing Changes: Silverlon- This is a large adhesive bandage that contains silver ions. This helps your incision heal by fighting off bacteria and protecting it from the outside environment. You are permitted to shower with this dressing. This will remain on your incision for 7 days and then should be removed. Some visible blood or drainage through the dressing window is normal. If there is significant drainage or leaking noted before the 7 days notify your doctor's office immediately. Once removed, keep incision clean and dry. If there is any drainage or redness noted, please call your surgeon. Laboratory Results Hemoglobin A1c Test 11/16/16 14:20 Range/Units Estimated Average Glucose 120 mg/dl Hemoglobin A1c 5.8 H 4.5-5.6 % Medical Emergencies . Who to Call and When: Medical Emergencies: If at any time you feel your situation is an emergency, please call 911 immediately. . Non-Emergent Contact Non-Emergency issues call your: Primary Care Provider, Surgeon . . "Provider Documentation" section prepared by Aman David. . Core Measure Problem Core Measures: None [place] Drug Monitoring Program Search Results: patient reviewed within database, no issues identified
[2016-12-12] MEDS ORDERED: RXC5 PO (10:11)
[2016-12-12] MEDS ORDERED: ASPEC81 PO (10:11)
[2016-12-12] MEDS ORDERED: ACET-1138 PO (10:11)
[2016-12-12] MEDS ORDERED: ONDA8TAB6 PO (10:11)
[2016-12-12] MEDS ORDERED: OXYSR10 PO (10:11)
--- NOTE | 2016-12-12 15:37 | Progress Note ---
Medicine Progress Note Date & Time of Visit: December 12, 2016 at 15:25. Subjective Pt was seen and examined Lying in bed with no distress Pt said that she feels weak, malaise and nauseated right now she was feeling dizzy early she said that it might be related to the pain medication She said that her pain is very well controlled denies any chest pain, palpitation, and sob Objective Last 8 Hrs Date Time Temp Pulse Resp B/P Pulse Ox O2 Delivery O2 Flow Rate FiO2 12/12/16 15:06 36.8 68 16 98/58 92 Room Air 12/12/16 12:52 36.4 74 16 94 Room Air 12/12/16 11:54 118/66 146/64 135/63 12/12/16 10:23 74 94 12/12/16 08:50 36.4 78 16 119/66 90 Room Air 12/12/16 08:35 81 117/73 12/12/16 07:31 Room Air Physical Exam: General- No acute distress Head- atraumatic Eyes- PERRL, EOMI ENT- oropharynx clear Neck- supple, no JVD Lungs- No wheezing Heart- regular rhythm; no murmur Abdomen- normal bowel sounds, soft Extremities- no calf tenderness Neuro- alert, oriented x 3; PERRL, EOMI Skin- warm & dry Laboratory Results: Last 24 Hours Test 12/12/16 05:15 White Blood Count 11.70 K/uL Red Blood Count 2.62 M/uL Hemoglobin 8.8 g/dL Hematocrit 26.1 % Mean Corpuscular Volume 99.6 fL Mean Corpuscular Hemoglobin 33.6 pg Mean Corpuscular Hemoglobin Concent 33.7 g/dl RDW Standard Deviation 48.3 fL RDW Coefficient of Variation 13.3 % Platelet Count 145 K/uL Mean Platelet Volume 10.0 fL Assessment & Plan S/P LEFT TKA - POD#[address] Herring - incentive spirometry - pain control with bowel regimen - PT/OT - monitor H/H Anemia Acute blood loss Mostly related to post-op Feeling dizzy and weak will check h/h later transfused if Hgb drops below 8 HTN On amlodipine and nebivolol BP in the low side will start gentle hydration OSTEOARTHRITIS - on Plaquenil ANXIETY - continue Tranxene HX BREAST CANCER - continue Aromasin DVT PROPHYLAXIS - As per ortho CODE STATUS FULL CODE DISPOSITION Will hold discharge for tomorrow since pt developed dizziness/weakness Will Discharge tomorrow morning Current Inpatient Medications: Current Inpatient Medications Medications (Trade) Dose Ordered Sig/Bucky Route Start Time Stop Time Status Last Admin Dose Admin Amlodipine Besylate (Norvasc Tab) 5 mg BID PO 12/10/16 21:00 01/09/17 20:59 12/12/16 08:37 5 MG Cetirizine HCl (zyrTEC TAB) 10 mg QAM PO 12/11/16 09:00 01/10/17 08:59 12/12/16 08:40 10 MG Cholecalciferol (Vitamin D Tab) 1,000 inter.unit QAM PO 12/11/16 09:00 01/10/17 08:59 12/12/16 08:40 1,000 INTER.UNIT Cyanocobalamin (Vitamin B-12 Tab) 500 mcg QAM PO 12/11/16 09:00 01/10/17 08:59 12/12/16 08:40 500 MCG Docusate Sodium (coLACE CAP) 100 mg BID PO 12/10/16 21:00 01/09/17 20:59 12/12/16 08:34 100 MG Folic Acid (Folvite Tab) 1 mg QAM PO 12/11/16 09:00 01/10/17 08:59 12/12/16 08:36 1 MG Multivitamins (Multivitamin Tab) 1 tab QAM PO 12/11/16 09:00 01/10/17 08:59 12/12/16 08:36 1 TAB Niacin (Niacin Tab) 500 mg QAM PO 12/11/16 09:00 01/10/17 08:59 12/12/16 08:37 500 MG Calcium/Vitamin D (Caltrate Plus Tab) 1 tab QAM PO 12/11/16 09:00 01/10/17 08:59 12/12/16 08:34 1 TAB Pantoprazole Sodium (Protonix Tab) 40 mg QAM PO 12/11/16 09:00 01/10/17 08:59 Oxycodone HCl (Roxicodone Immediate Rel Tab) 1 TABLET FOR PAIN RATING... Q4H PRN PO 12/10/16 09:45 12/24/16 09:44 12/11/16 23:28 5 MG Oxycodone HCl (Oxycontin Tab) 10 mg Q12 PO 12/10/16 21:00 12/24/16 20:59 12/12/16 08:31 10 MG Morphine Sulfate (MoRPHine SULFATE INJ) 2 mg Q2H PRN IV 12/10/16 09:45 12/24/16 09:44 Acetaminophen (Tylenol Tab) 1,000 mg Q8H PO 12/10/16 16:00 01/09/17 15:59 12/12/16 08:32 1,000 MG Magnesium Hydroxide (Milk Of Magnesia Susp) 30 ml Q6H PRN PO 12/10/16 09:45 01/09/17 09:44 Diphenhydramine HCl (Benadryl Cap) 25 mg Q8H PRN PO 12/10/16 09:45 01/09/17 09:44 12/11/16 23:28 25 MG Diphenhydramine HCl (Benadryl Inj) 25 mg Q8H PRN IV 12/10/16 09:45 01/09/17 09:44 Al Hydrox/Mg Hydrox/Simethicone (Maalox Max Susp) 15 ml Q4H PRN PO 12/10/16 09:45 01/09/17 09:44 Ondansetron HCl (Zofran Inj) 4 mg Q6H PRN IV 12/10/16 09:45 01/09/17 09:44 12/12/16 13:28 4 MG Metoclopramide HCl (Reglan Inj) 10 mg Q6H PRN IV 12/10/16 09:45 01/09/17 09:44 Ferrous Gluconate (Ferrous Gluconate Tab) 324 mg TIDM PO 12/10/16 12:30 01/09/17 12:29 12/12/16 13:01 324 MG Miscellaneous Information (Order Awaiting Action) 1 ea QS N/A 12/11/16 00:00 01/09/17 15:59 Timolol Maleate (Timoptic 0.25% Oph Soln) 1 drops QAM OP 12/11/16 09:00 01/10/17 08:59 12/12/16 08:33 1 DROPS Aspirin (Ecotrin Tab) 81 mg BID PO 12/11/16 10:00 01/10/17 09:59 12/12/16 08:34 81 MG Latanoprost (Xalatan Oph Soln) 1 drops HS OPB 12/11/16 21:00 01/09/17 20:59 12/11/16 20:51 1 DROPS Exemestane (Exemestane) 25 mg DAILY PO 12/12/16 09:00 01/11/17 08:59 12/12/16 08:35 25 MG Nebivolol (Bystolic Tab) 5 mg BID PO 12/11/16 21:00 01/10/17 20:59 12/12/16 08:34 5 MG Clorazepate Dipotassium (Tranxene-T Tab) 3.75 mg TID PO 12/11/16 14:00 01/10/17 13:59 12/12/16 14:00 3.75 MG Olopatadine HCl (Patanol 0.1% Op Soln) 1 drops BID OPB 12/12/16 21:00 01/09/17 20:59
[2016-12-12 18:00] LABS: HEMATOCRIT 31.3 % (37-47)
[2016-12-12] MEDS: LATANOPROST 0.005% OP SOLN 2.5 ML BTL OPB SCH (20:40)
[2016-12-13 07:31] VITALS: BP 137/76; PULSE 84; TEMP 36.9; O2SAT 92
[2016-12-13] MEDS: ACETAMINOPHEN 500 MG TAB PO SCH (08:24)
[2016-12-13] MEDS: FERROUS GLUCONATE 324 MG TAB PO SCH ×2 (08:25→12:59)
[2016-12-13] MEDS: TIMOLOL MALEATE 0.25% OP SOLN 5 ML BTL OP SCH (08:26)
--- NOTE | 2016-12-13 08:27 | Orthopedic Progress Note ---
Orthopedic Progress Note Date of Service December 13, 2016. Subjective Post OP Day: 3 Reports: complaints (mild knee pain today; mild dorsal ankle pain), feeling well , Denies: SOB, calf pain, chest pain, light headedness, nausea / vomiting Objective calves soft nontender, N/V intact, incision C/D/I, A&O x3, toes mobile No swelling of left calf or ankle. Ankle with good ROM with only mild discomfort. Incision benign. Date Time Temp Pulse Resp B/P Pulse Ox O2 Delivery O2 Flow Rate FiO2 12/13/16 07:31 36.9 84 17 137/76 92 Room Air 12/12/16 23:37 Room Air 12/12/16 23:10 36.8 79 16 105/61 96 Room Air 12/12/16 20:40 89 114/66 12/12/16 17:45 Room Air 12/12/16 15:06 36.8 68 16 98/58 92 Room Air 12/12/16 12:52 36.4 74 16 94 Room Air 12/12/16 11:54 118/66 146/64 135/63 12/12/16 10:23 74 94 12/12/16 08:50 36.4 78 16 119/66 90 Room Air 12/12/16 08:35 81 117/73 Laboratory Results 24 Hours: Test 12/12/16 17:50 Hematocrit 31.3 % Hemoglobin 10.1 g/dL Assessment & Plan Assessment: POD 3 s/p L TKA Acute Blood Loss Anemia Plan: Doing well this AM; Hgb above 10. ASA 81 mg for DVT proph pain controlled Plan for HS [place] today. Inhouse Planning Pain Management: Morphine, Oxy IR DVT Prophylaxis: TEDs, SCDs, ASA Discharge Planning Discharge Planning: rehab hospital Pain Management: Oxy IR DVT Prophylaxis: TEDs, ASA Therapy: Physical Therapy
[2016-12-13] MEDS: OLOPATADINE HYDROCHLORIDE 5 ML BTL OPB SCH (08:28)
--- NOTE | 2016-12-13 08:28 | Anesthesiology Progress Note ---
Anesthesia Post Op Note Date & Time December 13, 2016 at 08:27 Vital Signs Pain Intensity: 2.0 Vital Signs Past 12 Hours Date Time Temp Pulse Resp B/P Pulse Ox O2 Delivery O2 Flow Rate FiO2 12/13/16 07:31 36.9 84 17 137/76 92 Room Air 12/12/16 23:37 Room Air 12/12/16 23:10 36.8 79 16 105/61 96 Room Air 12/12/16 20:40 89 114/66 Notes Mental Status: alert / awake / arousable, participated in evaluation Pt Amnestic to Procedure: Yes Nausea / Vomiting: adequately controlled Pain: adequately controlled Airway Patency, RR, SpO2: stable & adequate BP & HR: stable & adequate Hydration State: stable & adequate Neuraxial Anesthesia: sensory block resolved Anesthetic Complications: no major complications apparent
[2016-12-13] MEDS: CYANOCOBALAMIN 500 MCG TAB (VIT B-12) PO SCH (08:29)
[2016-12-13] MEDS: DOCUSATE SODIUM 100 MG CAP PO SCH (08:29)
[2016-12-13] MEDS: ASPIRIN 81 MG ECTAB PO SCH (08:29)
[2016-12-13] MEDS: NEBIVOLOL HCL 5 MG PO SCH (08:29)
[2016-12-13] MEDS: EXEMESTANE 25 MG PO SCH (08:30)
[2016-12-13] MEDS: CALCIUM 600MG + VIT D 400 IU TAB PO SCH (08:30)
[2016-12-13] MEDS: MULTIVITAMIN TAB PO SCH (08:31)
[2016-12-13] MEDS: AMLODIPINE BESYLATE 5 MG TAB PO SCH (08:32)
[2016-12-13] MEDS: NIACIN 500 MG TAB IMMEDIATE RELEASE PO SCH (08:32)
[2016-12-13] MEDS: CHOLECALCIFEROL 1000 INTER.UNIT TAB PO SCH (08:33)
[2016-12-13] MEDS: CETIRIZINE HCL 10 MG TAB PO SCH (08:33)
[2016-12-13] MEDS: CLORAZEPATE DIPOTASSIUM 3.75 MG PO SCH ×2 (08:33→14:01)
[2016-12-13] MEDS: PANTOprazole SOD 40 MG TAB PO SCH (08:34)
[2016-12-13] MEDS: OXYCODONE HCL 10 MG TABCR (OXYCONTIN) PO SCH (08:36)
[2016-12-13 12:08] VITALS: BP 137/76; PULSE 84; TEMP 36.9; O2SAT 92
--- NOTE | 2016-12-13 14:20 | Progress Note ---
Medicine Progress Note Date & Time of Visit: December 13, 2016 at 14:17. Subjective Pt was seen and examined Lying in bed very comfortable She said that she feels good today Denies any chest pain, palpitation, dizziness and SOB Objective Last 8 Hrs Date Time Temp Pulse Resp B/P Pulse Ox O2 Delivery O2 Flow Rate FiO2 12/13/16 12:08 36.9 84 17 92 Room Air 12/13/16 07:31 36.9 84 17 137/76 92 Room Air 12/13/16 07:30 Room Air Physical Exam: General- No acute distress Head- atraumatic Eyes- PERRL, EOMI ENT- oropharynx clear Neck- supple, no JVD Lungs- No wheezing Heart- regular rhythm; no murmur Abdomen- normal bowel sounds, soft Extremities- no calf tenderness Neuro- alert, oriented x 3; PERRL, EOMI Skin- warm & dry Laboratory Results: Last 24 Hours Test 12/12/16 17:50 Hemoglobin 10.1 g/dL Hematocrit 31.3 % Assessment & Plan S/P LEFT TKA - POD#[address] Herring - incentive spirometry - pain control with bowel regimen - PT/OT - hgb increase to 10 Anemia Acute blood loss Mostly related to post-op Feeling dizzy and weak Hbg increase 10 1 HTN On amlodipine and nebivolol BP in the low side Stable OSTEOARTHRITIS - on Plaquenil ANXIETY - continue Tranxene HX BREAST CANCER - continue Aromasin DVT PROPHYLAXIS - As per ortho CODE STATUS FULL CODE DISPOSITION Will Discharge to Rehab today Continue PT Current Inpatient Medications: Current Inpatient Medications Medications (Trade) Dose Ordered Sig/Bucky Route Start Time Stop Time Status Last Admin Dose Admin Amlodipine Besylate (Norvasc Tab) 5 mg BID PO 12/10/16 21:00 01/09/17 20:59 12/13/16 08:32 5 MG Cetirizine HCl (zyrTEC TAB) 10 mg QAM PO 12/11/16 09:00 01/10/17 08:59 12/13/16 08:33 10 MG Cholecalciferol (Vitamin D Tab) 1,000 inter.unit QAM PO 12/11/16 09:00 01/10/17 08:59 12/13/16 08:33 1,000 INTER.UNIT Cyanocobalamin (Vitamin B-12 Tab) 500 mcg QAM PO 12/11/16 09:00 6/12/17 08:59 12/13/16 08:29 500 MCG Docusate Sodium (coLACE CAP) 100 mg BID PO 12/10/16 21:00 01/09/17 20:59 12/13/16 08:29 100 MG Folic Acid (Folvite Tab) 1 mg QAM PO 12/11/16 09:00 01/10/17 08:59 12/13/16 08:32 1 MG Multivitamins (Multivitamin Tab) 1 tab QAM PO 12/11/16 09:00 01/10/17 08:59 12/13/16 08:31 1 TAB Niacin (Niacin Tab) 500 mg QAM PO 12/11/16 09:00 01/10/17 08:59 12/13/16 08:32 500 MG Calcium/Vitamin D (Caltrate Plus Tab) 1 tab QAM PO 12/11/16 09:00 01/10/17 08:59 12/13/16 08:30 1 TAB Pantoprazole Sodium (Protonix Tab) 40 mg QAM PO 12/11/16 09:00 01/10/17 08:59 12/13/16 08:34 40 MG Oxycodone HCl (Roxicodone Immediate Rel Tab) 1 TABLET FOR PAIN RATING... Q4H PRN PO 12/10/16 09:45 12/24/16 09:44 12/11/16 23:28 5 MG Oxycodone HCl (Oxycontin Tab) 10 mg Q12 PO 12/10/16 21:00 12/24/16 20:59 12/12/16 08:31 10 MG Morphine Sulfate (MoRPHine SULFATE INJ) 2 mg Q2H PRN IV 12/10/16 09:45 12/24/16 09:44 Acetaminophen (Tylenol Tab) 1,000 mg Q8H PO 12/10/16 16:00 01/09/17 15:59 12/13/16 08:24 1,000 MG Magnesium Hydroxide (Milk Of Magnesia Susp) 30 ml Q6H PRN PO 12/10/16 09:45 01/09/17 09:44 Diphenhydramine HCl (Benadryl Cap) 25 mg Q8H PRN PO 12/10/16 09:45 01/09/17 09:44 12/13/16 09:20 25 MG Diphenhydramine HCl (Benadryl Inj) 25 mg Q8H PRN IV 12/10/16 09:45 01/09/17 09:44 Al Hydrox/Mg Hydrox/Simethicone (Maalox Max Susp) 15 ml Q4H PRN PO 12/10/16 09:45 01/09/17 09:44 Ondansetron HCl (Zofran Inj) 4 mg Q6H PRN IV 12/10/16 09:45 01/09/17 09:44 12/12/16 13:28 4 MG Metoclopramide HCl (Reglan Inj) 10 mg Q6H PRN IV 12/10/16 09:45 01/09/17 09:44 Ferrous Gluconate (Ferrous Gluconate Tab) 324 mg TIDM PO 12/10/16 12:30 01/09/17 12:29 12/13/16 12:59 324 MG Miscellaneous Information (Order Awaiting Action) 1 ea QS N/A 12/11/16 00:00 01/09/17 15:59 Timolol Maleate (Timoptic 0.25% Oph Soln) 1 drops QAM OP 12/11/16 09:00 01/10/17 08:59 12/13/16 08:26 1 DROPS Aspirin (Ecotrin Tab) 81 mg BID PO 12/11/16 10:00 01/10/17 09:59 12/13/16 08:29 81 MG Latanoprost (Xalatan Oph Soln) 1 drops HS OPB 12/11/16 21:00 01/09/17 20:59 12/12/16 20:40 1 DROPS Exemestane (Exemestane) 25 mg DAILY PO 12/12/16 09:00 01/11/17 08:59 12/13/16 08:30 25 MG Nebivolol (Bystolic Tab) 5 mg BID PO 12/11/16 21:00 01/10/17 20:59 12/13/16 08:29 5 MG Clorazepate Dipotassium (Tranxene-T Tab) 3.75 mg TID PO 12/11/16 14:00 01/10/17 13:59 12/13/16 14:01 3.75 MG Olopatadine HCl (Patanol 0.1% Op Soln) 1 drops BID OPB 12/12/16 21:00 01/09/17 20:59 12/13/16 08:28 1 DROPS
--- NOTE | 2016-12-13 18:24 | DISCHARGE SUMMARY ---
DISCHARGE DIAGNOSIS: Degenerative joint disease, left knee. SECONDARY DIAGNOSES: Hypertension, osteoarthritis, gastroesophageal reflux disease, hiatal hernia, history of breast carcinoma, and anemia. CONSULTS: Dr. Bundy and NANDO Harrington with continued care by Dr. Alphonse Chu. COMPLICATIONS: None. PROCEDURES: Left total knee arthroplasty performed by Dr. Keyn Herring on 12/10/2016. BRIEF HISTORY OF PRESENT ILLNESS: As dictated in the history and physical. HOSPITAL SUMMARY: The patient was admitted on the above date and had the above-noted surgery performed which she tolerated well. On the first postoperative day, the patient was feeling well and pain was controlled. She had no complaints. Calves were soft, nontender, neurovascularly intact. Dressings were clean, dry and intact, toes. Hemoglobin was 10.1. Vital signs were stable. She was afebrile and she was started on physical therapy protocol and continued on DVT prophylaxis and pain management. Later on, she had decided to try OxyContin which she later became nauseated and was not feeling well over the next day or so. She was continued on her PT protocol. By her second postoperative day, she was feeling well and incision was benign. Her toes were mobile. Hemoglobin was 8.8 and she was at that point currently asymptomatic. Plans were for her to go to [facility] and she was continued on her protocol. She was seen later by Dr. Chu in the afternoon and she was feeling weak and had nausea and general malaise. She was having some dizziness earlier that day which she felt to be related to pain medication, but her pain was controlled. She was thusly transfused 1 unit of PRBCs and OxyContin was held. By her third postoperative day, she had mild knee pain and some mild ankle pain over the dorsum of the ankle but was otherwise feeling well. She had no lightheadedness, no nausea or vomiting, no shortness of breath, no chest pain. Calves were soft, nontender, neurovascularly intact. Incision was benign. Toes were mobile. She had no swelling of the left calf or the ankle. The ankle had good range of motion and only mild discomfort. Incision was benign and vital signs were stable. She was afebrile. Hemoglobin was 10.1 post-transfusion and she was remaining stable and it was felt she could be transferred to [facility] for further physical therapy and care. For further review, please see chart. LABORATORY AND X-RAY DATA: As per chart. DISCHARGE INSTRUCTIONS: The patient was discharged to [facility] on 12/13/2016. Activity up ad osvaldo, physical therapy, weightbearing as tolerated, and TKA protocol. Follow TK instruction sheets and special care instructions as noted. Regular diet and follow up with Dr. Herring in 2 weeks. The patient to call for appointment if one has not been made for you. DISCHARGE MEDICATIONS: New prescriptions: Acetaminophen 1000 mg p.o. q. 8 hours, aspirin 81 mg p.o. b.i.d. for 30 days, Zofran 8 mg p.o. q. 8 hours p.r.n. nausea, oxycodone 5-10 mg p.o. q. 4 hours p.r.n. Resume home meds as listed and stop taking Tylenol Arthritis pill, flaxseed, Plaquenil and resume Plaquenil in 2 weeks and stop taking Osteo Bi-Flex. MTDD
== END 2016-12-13 14:34 | DRG 470 ==
LOC: ENRESERVTM → ENRESERVDT → C.ACU 04:57 → C.3E 06:30
PROVIDERS: ADMIT Orthopaedic Surgery; ATTEND Orthopaedic Surgery
PROC: 0SRD0J9 Replacement of Left Knee Joint with Synthetic Substitute, Cemented, Open Approach (ICD-10-PCS; principal; 2016-12-10 07:00)
DX: M17.12 Unilateral primary osteoarthritis, left knee (principal); D62 Acute posthemorrhagic anemia; I10 Essential (primary) hypertension; K21.9 Gastro-esophageal reflux disease without esophagitis; K44.9 Diaphragmatic hernia without obstruction or gangrene; Z85.3 Personal history of malignant neoplasm of breast; Z91.040 Latex allergy status; Z79.899 Other long term (current) drug therapy